=== PATIENT | male | born 1965 | race Caucasian/White ===

== ENCOUNTER 2018-04-09 15:52 | Observation (INO) ==
--- NOTE | 2018-04-09 16:23 | XR ---
EXAM DATE: 04/09/2018 4:18 PM EDT AGE/SEX: 52 years / Male INDICATIONS: . Mid chest pain and syncope. CLINICAL DATA: This is the patient's initial encounter. Patient reports that signs and symptoms have been present for 2 days and indicates a pain score of 8/10. MEDICAL/SURGICAL HISTORY: Hypertension. Cholecystectomy. COMPARISON: No prior exams available for comparison. FINDINGS: PA and lateral views of the chest demonstrate the lungs to be symmetrically aerated without evidence of mass, focal consolidation, or effusion. Mild interstitial prominence in the perihilar and lower estephania ngs bilaterally. No appreciable pneumothorax. The cardiomediastinal contours are unremarkable. Degene rative changes of the thoracic spine. Partially imaged postoperative changes of the cervical spine. CONCLUSION: 1. Nonspecific mild interstitial prominence in the perihilar and lower lungs bilaterally. 2. Normal cardiomediastinal silhouette. Electronically signed by: Danyelle Chandra MD 04/09/2018 4:22 PM EDT
[2018-04-09 16:41] LABS: Baso % (Auto) 0.3 % (0.0-2.0); Eos # (Auto) 0.2 th/mm3 (0.0-0.4); Eos % (Auto) 3.7 % (0.0-4.0); Hematocrit 38.2 % (39.0-51.0); Hemoglobin 12.7 gm/dL (13.0-17.0); Lymph # (Auto) 1.8 th/mm3 (1.0-4.8); Lymph % (Auto) 29.5 % (9.0-44.0); Mean Corpuscular HGB Conc 33.2 % (32.0-36.0); Mean Corpuscular Hemoglobin 28.2 pg (27.0-34.0); Mean Corpuscular Volume 84.8 fL (80.0-100.0); Mean Platelet Volume 10.1 fL (7.0-11.0); Mono # (Auto) 0.4 th/mm3 (0.0-0.9); Mono % (Auto) 7.4 % (0.0-8.0); Neut # (Auto) 3.5 th/mm3 (1.8-7.7); Neut % (Auto) 59.1 % (16.0-70.0); Platelet Count 116 th/mm3 (150-450); Red Cell Distribution Width 14.2 % (11.6-17.2)
--- NOTE | 2018-04-09 16:49 | ED ---
HPI General Chief complaint: Chest Pain Stated complaint: cardiac Time Seen by Provider: 04/09/18 16:00 History of Present Illness HPI narrative: 52 male history of hypertension dyslipidemia here for evaluation of chest pain and syncope. Patient has been having syncopal episodes for the last 2 years on and off been getting worse last week, last syncopal episode was this morning while he was trying to get to his car, syncopal episode witnessed by his who saw him falling on the ground, she called 911 and brought him in via [facility]. Patient says that he has been having chest pain on and off, mid chest, radiates to his left chest, nothing makes it better or worse. No diaphoresis or palpitations. No seizure-like activity. Related Data Home Medications Medication Instructions Recorded Confirmed amlodipine [Norvasc] 5 mg PO DAILY 04/09/18 04/09/18 lisinopril-hydrochlorothiazide 1 tab PO DAILY 04/09/18 04/09/18 simvastatin [Zocor] 40 mg PO QPM 04/09/18 04/09/18 tamsulosin [Flomax] 0.4 mg PO DAILY 04/09/18 04/09/18 methadone 50 mg PO DAILY 04/10/18 04/10/18 Previous Rx's Medication Instructions Recorded clonazepam [Klonopin] 0.5 mg PO Q8HR tab 04/10/18 fluoxetine 10 mg PO DAILY cap 04/10/18 quetiapine 50 mg PO HS tab 04/10/18 Allergies Allergy/AdvReac Type Severity Reaction Status Date / Time No Known Allergies Allergy Verified 04/09/18 15:57 Review of Systems ROS: all other systems reviewed are negative [facility] Social History Social History Substance History: No History of Abuse Second Hand Smoke Exposure: Yes Smoking Status: Refused to answer Tobacco Type: Cigarettes How Often Do You Have a Drink Containing Alcohol: Unable to Obtain Immunization History Tetanus Immunization: >5 Years Hx Influenza Vaccine This Season: No Exam Narrative Exam Narrative: GENERAL: Alert oriented x3 no acute distress. SKIN: Focused skin assessment warm/dry. HEAD: Atraumatic. Normocephalic. EYES: Pupils equal and round. No scleral icterus. No injection or drainage. ENT: No nasal bleeding or discharge. Mucous membranes pink and moist. NECK: Trachea midline. No JVD. CARDIOVASCULAR: Regular rate and rhythm. No murmur appreciated. RESPIRATORY: No accessory muscle use. Clear to auscultation. Breath sounds equal bilaterally. GASTROINTESTINAL: Abdomen soft, non-tender, nondistended. Hepatic and splenic margins not palpable. MUSCULOSKELETAL: No obvious deformities. No clubbing. No cyanosis. No edema. NEUROLOGICAL: Awake and alert. No obvious cranial nerve deficits. Motor grossly within normal limits. Normal speech. PSYCHIATRIC: Appropriate mood and affect; insight and judgment normal. Course Initial Documented Vital Signs Temperature 97.7 F 04/09/18 15:55 Pulse Rate 74 04/09/18 15:55 Respiratory Rate 18 04/09/18 15:55 Blood Pressure 142/67 H 04/09/18 15:55 Pulse Oximetry 98 04/09/18 15:55 Last Documented Vital Signs Temperature 98.0 F 04/11/18 08:00 Pulse Rate 70 04/11/18 08:00 Respiratory Rate 16 04/11/18 08:00 Blood Pressure 140/84 04/11/18 08:00 Pulse Oximetry 99 04/11/18 08:33 Medical Decision Making MDM Narrative Medical decision making narrative: chest pain on and off, syncopal episodes, EKG no ST elevation or depression. will admit for chest pain R/O PR. Medical Screen Exam Complete: Yes Emergency Medical Condition: Yes Lab Data Result diagrams: 04/11/18 06:35 04/11/18 06:35 Lab Results 04/09/18 04/09/18 04/09/18 Range/Units 16:15 16:15 16:15 WBC 6.0 (4.0-11.0) th/mm3 RBC 4.50 (4.50-5.90) mil/mm3 Hgb 12.7 L (13.0-17.0) gm/dL Hct 38.2 L (39.0-51.0) % MCV 84.8 (80.0-100.0) fL MCH 28.2 (27.0-34.0) pg MCHC 33.2 (32.0-36.0) % RDW 14.2 (11.6-17.2) % Plt Count 116 L (150-450) th/mm3 MPV 10.1 (7.0-11.0) fL Prelim Diff (Auto) Neut % (Auto) 59.1 (16.0-70.0) % Lymph % (Auto) 29.5 (9.0-44.0) % Loving % (Auto) 7.4 (0.0-8.0) % Eos % (Auto) 3.7 (0.0-4.0) % Baso % (Auto) 0.3 (0.0-2.0) % Neut # (Auto) 3.5 (1.8-7.7) th/mm3 Lymph # (Auto) 1.8 (1.0-4.8) th/mm3 Loving # (Auto) 0.4 (0.0-0.9) th/mm3 Eos # (Auto) 0.2 (0.0-0.4) th/mm3 Baso # (Auto) 0.0 (0.0-0.2) th/mm3 WBC Differential . Diff Scan Differential Comment Auto diff final Platelet Estimate (Normal) Platelet Morphology (Normal) Ovalocytes (None) PT (9.8-11.6) sec INR Ratio APTT (24.3-30.1) sec Sodium 146 H (136-145) meq/L Potassium 3.7 (3.5-5.1) meq/L Chloride 110 H (98-107) meq/L Carbon Dioxide 29.0 (21.0-32.0) meq/L Anion Gap 7 (5-15) meq/L BUN 12 (7-18) mg/dL Creatinine 1.01 (0.60-1.30) mg/dL Estimated GFR 77 L (>89) mL/min Random Glucose 89 (74-106) mg/dL Hemoglobin A1c (4.3-6.0) % Calcium 8.4 L (8.5-10.1) mg/dL Total Bilirubin 0.3 (0.2-1.0) mg/dL AST 18 (15-37) U/L ALT 23 (12-78) U/L Alkaline Phosphatase 50 (45-117) U/L Total Creatine Kinase (39-308) U/L Troponin I Less than 0.02 L (0.02-0.05) ng/mL B-Natriuretic Peptide 12 (0-100) pg/mL Total Protein 6.3 L (6.4-8.2) g/dL Albumin 3.5 (3.4-5.0) g/dL Triglycerides (42-150) mg/dL Cholesterol (120-200) mg/dL LDL Cholesterol, Calc (0-99) mg/dL HDL Cholesterol (40.0-60.0) mg/dL Cholesterol/HDL Ratio Ratio Vitamin B12 (193-986) pg/mL Procalcitonin (0.00-0.08) ng/mL TSH (0.358-3.740) uIU/mL Free T4 (0.76-1.46) ng/dL Urine Opiates Screen (Neg) Ur Barbiturates Screen (Neg) Ur Amphetamines Screen (Neg) U Benzodiazepines Scrn (Neg) Urine Cocaine Screen (Neg) U Cannabinoids Screen (Neg) RPR (Nonreactive) 04/09/18 04/09/18 04/09/18 Range/Units 16:15 16:15 23:35 WBC (4.0-11.0) th/mm3 RBC (4.50-5.90) mil/mm3 Hgb (13.0-17.0) gm/dL Hct (39.0-51.0) % MCV (80.0-100.0) fL MCH (27.0-34.0) pg MCHC (32.0-36.0) % RDW (11.6-17.2) % Plt Count (150-450) th/mm3 MPV (7.0-11.0) fL Prelim Diff (Auto) Neut % (Auto) (16.0-70.0) % Lymph % (Auto) (9.0-44.0) % Loving % (Auto) (0.0-8.0) % Eos % (Auto) (0.0-4.0) % Baso % (Auto) (0.0-2.0) % Neut # (Auto) (1.8-7.7) th/mm3 Lymph # (Auto) (1.0-4.8) th/mm3 Loving # (Auto) (0.0-0.9) th/mm3 Eos # (Auto) (0.0-0.4) th/mm3 Baso # (Auto) (0.0-0.2) th/mm3 WBC Differential Diff Scan Differential Comment Platelet Estimate (Normal) Platelet Morphology (Normal) Ovalocytes (None) PT 10.5 (9.8-11.6) sec INR 1.0 Ratio APTT 22.2 L (24.3-30.1) sec Sodium (136-145) meq/L Potassium (3.5-5.1) meq/L Chloride (98-107) meq/L Carbon Dioxide (21.0-32.0) meq/L Anion Gap (5-15) meq/L BUN (7-18) mg/dL Creatinine (0.60-1.30) mg/dL Estimated GFR (>89) mL/min Random Glucose (74-106) mg/dL Hemoglobin A1c (4.3-6.0) % Calcium (8.5-10.1) mg/dL Total Bilirubin (0.2-1.0) mg/dL AST (15-37) U/L ALT (12-78) U/L Alkaline Phosphatase (45-117) U/L Total Creatine Kinase 68 (39-308) U/L Troponin I Less than 0.02 L (0.02-0.05) ng/mL B-Natriuretic Peptide (0-100) pg/mL Total Protein (6.4-8.2) g/dL Albumin (3.4-5.0) g/dL Triglycerides (42-150) mg/dL Cholesterol (120-200) mg/dL LDL Cholesterol, Calc (0-99) mg/dL HDL Cholesterol (40.0-60.0) mg/dL Cholesterol/HDL Ratio Ratio Vitamin B12 (193-986) pg/mL Procalcitonin (0.00-0.08) ng/mL TSH (0.358-3.740) uIU/mL Free T4 (0.76-1.46) ng/dL Urine Opiates Screen (Neg) Ur Barbiturates Screen (Neg) Ur Amphetamines Screen (Neg) U Benzodiazepines Scrn (Neg) Urine Cocaine Screen (Neg) U Cannabinoids Screen (Neg) RPR (Nonreactive) 04/10/18 04/10/18 04/10/18 Range/Units 01:22 04:25 04:25 WBC 4.8 (4.0-11.0) th/mm3 RBC 4.37 L (4.50-5.90) mil/mm3 Hgb 12.3 L (13.0-17.0) gm/dL Hct 37.3 L (39.0-51.0) % MCV 85.4 (80.0-100.0) fL MCH 28.1 (27.0-34.0) pg MCHC 32.9 (32.0-36.0) % RDW 13.9 (11.6-17.2) % Plt Count 107 L (150-450) th/mm3 MPV 9.8 (7.0-11.0) fL Prelim Diff (Auto) Neut % (Auto) 50.3 (16.0-70.0) % Lymph % (Auto) 37.3 (9.0-44.0) % Loving % (Auto) 7.3 (0.0-8.0) % Eos % (Auto) 4.7 H (0.0-4.0) % Baso % (Auto) 0.4 (0.0-2.0) % Neut # (Auto) 2.4 (1.8-7.7) th/mm3 Lymph # (Auto) 1.8 (1.0-4.8) th/mm3 Loving # (Auto) 0.4 (0.0-0.9) th/mm3 Eos # (Auto) 0.2 (0.0-0.4) th/mm3 Baso # (Auto) 0.0 (0.0-0.2) th/mm3 WBC Differential . Diff Scan Differential Comment Auto diff final Platelet Estimate (Normal) Platelet Morphology (Normal) Ovalocytes (None) PT (9.8-11.6) sec INR Ratio APTT (24.3-30.1) sec Sodium 145 (136-145) meq/L Potassium 3.6 (3.5-5.1) meq/L Chloride 108 H (98-107) meq/L Carbon Dioxide 28.8 (21.0-32.0) meq/L Anion Gap 8 (5-15) meq/L BUN 12 (7-18) mg/dL Creatinine 0.92 (0.60-1.30) mg/dL Estimated GFR 86 L (>89) mL/min Random Glucose 114 H (74-106) mg/dL Hemoglobin A1c (4.3-6.0) % Calcium 8.4 L (8.5-10.1) mg/dL Total Bilirubin 0.3 (0.2-1.0) mg/dL AST 16 (15-37) U/L ALT 21 (12-78) U/L Alkaline Phosphatase 49 (45-117) U/L Total Creatine Kinase (39-308) U/L Troponin I Less than 0.02 L (0.02-0.05) ng/mL B-Natriuretic Peptide (0-100) pg/mL Total Protein 5.8 L (6.4-8.2) g/dL Albumin 3.2 L (3.4-5.0) g/dL Triglycerides (42-150) mg/dL Cholesterol (120-200) mg/dL LDL Cholesterol, Calc (0-99) mg/dL HDL Cholesterol (40.0-60.0) mg/dL Cholesterol/HDL Ratio Ratio Vitamin B12 (193-986) pg/mL Procalcitonin (0.00-0.08) ng/mL TSH (0.358-3.740) uIU/mL Free T4 (0.76-1.46) ng/dL Urine Opiates Screen Neg (Neg) Ur Barbiturates Screen Neg (Neg) Ur Amphetamines Screen Neg (Neg) U Benzodiazepines Scrn Neg (Neg) Urine Cocaine Screen Neg (Neg) U Cannabinoids Screen Neg (Neg) RPR (Nonreactive) 04/10/18 04/10/18 04/10/18 Range/Units 04:25 04:25 15:55 WBC (4.0-11.0) th/mm3 RBC (4.50-5.90) mil/mm3 Hgb (13.0-17.0) gm/dL Hct (39.0-51.0) % MCV (80.0-100.0) fL MCH (27.0-34.0) pg MCHC (32.0-36.0) % RDW (11.6-17.2) % Plt Count (150-450) th/mm3 MPV (7.0-11.0) fL Prelim Diff (Auto) Neut % (Auto) (16.0-70.0) % Lymph % (Auto) (9.0-44.0) % Loving % (Auto) (0.0-8.0) % Eos % (Auto) (0.0-4.0) % Baso % (Auto) (0.0-2.0) % Neut # (Auto) (1.8-7.7) th/mm3 Lymph # (Auto) (1.0-4.8) th/mm3 Loving # (Auto) (0.0-0.9) th/mm3 Eos # (Auto) (0.0-0.4) th/mm3 Baso # (Auto) (0.0-0.2) th/mm3 WBC Differential Diff Scan Differential Comment Platelet Estimate (Normal) Platelet Morphology (Normal) Ovalocytes (None) PT (9.8-11.6) sec INR Ratio APTT (24.3-30.1) sec Sodium (136-145) meq/L Potassium (3.5-5.1) meq/L Chloride (98-107) meq/L Carbon Dioxide (21.0-32.0) meq/L Anion Gap (5-15) meq/L BUN (7-18) mg/dL Creatinine (0.60-1.30) mg/dL Estimated GFR (>89) mL/min Random Glucose (74-106) mg/dL Hemoglobin A1c 5.9 (4.3-6.0) % Calcium (8.5-10.1) mg/dL Total Bilirubin (0.2-1.0) mg/dL AST (15-37) U/L ALT (12-78) U/L Alkaline Phosphatase (45-117) U/L Total Creatine Kinase (39-308) U/L Troponin I (0.02-0.05) ng/mL B-Natriuretic Peptide (0-100) pg/mL Total Protein (6.4-8.2) g/dL Albumin (3.4-5.0) g/dL Triglycerides 241 H (42-150) mg/dL Cholesterol 151 (120-200) mg/dL LDL Cholesterol, Calc 63 (0-99) mg/dL HDL Cholesterol 40.0 (40.0-60.0) mg/dL Cholesterol/HDL Ratio 3.77 Ratio Vitamin B12 296 (193-986) pg/mL Procalcitonin (0.00-0.08) ng/mL TSH 1.860 (0.358-3.740) uIU/mL Free T4 1.12 (0.76-1.46) ng/dL Urine Opiates Screen (Neg) Ur Barbiturates Screen (Neg) Ur Amphetamines Screen (Neg) U Benzodiazepines Scrn (Neg) Urine Cocaine Screen (Neg) U Cannabinoids Screen (Neg) RPR Nonreactive (Nonreactive) 04/11/18 04/11/18 04/11/18 Range/Units 06:35 06:35 06:35 WBC 3.9 L (4.0-11.0) th/mm3 RBC 4.43 L (4.50-5.90) mil/mm3 Hgb 12.5 L (13.0-17.0) gm/dL Hct 37.7 L (39.0-51.0) % MCV 85.1 (80.0-100.0) fL MCH 28.3 (27.0-34.0) pg MCHC 33.2 (32.0-36.0) % RDW 13.9 (11.6-17.2) % Plt Count 88 L (150-450) th/mm3 MPV 10.0 (7.0-11.0) fL Prelim Diff (Auto) Slide review pending Neut % (Auto) 56.7 (16.0-70.0) % Lymph % (Auto) 30.3 (9.0-44.0) % Loving % (Auto) 9.8 H (0.0-8.0) % Eos % (Auto) 3.0 (0.0-4.0) % Baso % (Auto) 0.2 (0.0-2.0) % Neut # (Auto) 2.2 (1.8-7.7) th/mm3 Lymph # (Auto) 1.2 (1.0-4.8) th/mm3 Loving # (Auto) 0.4 (0.0-0.9) th/mm3 Eos # (Auto) 0.1 (0.0-0.4) th/mm3 Baso # (Auto) 0.0 (0.0-0.2) th/mm3 WBC Differential . Diff Scan Auto diff confirmed Differential Comment . Platelet Estimate Low L (Normal) Platelet Morphology Enlarged H (Normal) Ovalocytes 1+ H (None) PT (9.8-11.6) sec INR Ratio APTT (24.3-30.1) sec Sodium 146 H (136-145) meq/L Potassium 3.5 (3.5-5.1) meq/L Chloride 110 H (98-107) meq/L Carbon Dioxide 28.9 (21.0-32.0) meq/L Anion Gap 7 (5-15) meq/L BUN 11 (7-18) mg/dL Creatinine 0.96 (0.60-1.30) mg/dL Estimated GFR 82 L (>89) mL/min Random Glucose 93 (74-106) mg/dL Hemoglobin A1c (4.3-6.0) % Calcium 8.9 (8.5-10.1) mg/dL Total Bilirubin 0.3 (0.2-1.0) mg/dL AST 21 (15-37) U/L ALT 27 (12-78) U/L Alkaline Phosphatase 52 (45-117) U/L Total Creatine Kinase (39-308) U/L Troponin I (0.02-0.05) ng/mL B-Natriuretic Peptide 54 (0-100) pg/mL Total Protein 6.7 D (6.4-8.2) g/dL Albumin 3.7 (3.4-5.0) g/dL Triglycerides (42-150) mg/dL Cholesterol (120-200) mg/dL LDL Cholesterol, Calc (0-99) mg/dL HDL Cholesterol (40.0-60.0) mg/dL Cholesterol/HDL Ratio Ratio Vitamin B12 (193-986) pg/mL Procalcitonin (0.00-0.08) ng/mL TSH (0.358-3.740) uIU/mL Free T4 (0.76-1.46) ng/dL Urine Opiates Screen (Neg) Ur Barbiturates Screen (Neg) Ur Amphetamines Screen (Neg) U Benzodiazepines Scrn (Neg) Urine Cocaine Screen (Neg) U Cannabinoids Screen (Neg) RPR (Nonreactive) 04/11/18 Range/Units 06:35 WBC (4.0-11.0) th/mm3 RBC (4.50-5.90) mil/mm3 Hgb (13.0-17.0) gm/dL Hct (39.0-51.0) % MCV (80.0-100.0) fL MCH (27.0-34.0) pg MCHC (32.0-36.0) % RDW (11.6-17.2) % Plt Count (150-450) th/mm3 MPV (7.0-11.0) fL Prelim Diff (Auto) Neut % (Auto) (16.0-70.0) % Lymph % (Auto) (9.0-44.0) % Loving % (Auto) (0.0-8.0) % Eos % (Auto) (0.0-4.0) % Baso % (Auto) (0.0-2.0) % Neut # (Auto) (1.8-7.7) th/mm3 Lymph # (Auto) (1.0-4.8) th/mm3 Loving # (Auto) (0.0-0.9) th/mm3 Eos # (Auto) (0.0-0.4) th/mm3 Baso # (Auto) (0.0-0.2) th/mm3 WBC Differential Diff Scan Differential Comment Platelet Estimate (Normal) Platelet Morphology (Normal) Ovalocytes (None) PT (9.8-11.6) sec INR Ratio APTT (24.3-30.1) sec Sodium (136-145) meq/L Potassium (3.5-5.1) meq/L Chloride (98-107) meq/L Carbon Dioxide (21.0-32.0) meq/L Anion Gap (5-15) meq/L BUN (7-18) mg/dL Creatinine (0.60-1.30) mg/dL Estimated GFR (>89) mL/min Random Glucose (74-106) mg/dL Hemoglobin A1c (4.3-6.0) % Calcium (8.5-10.1) mg/dL Total Bilirubin (0.2-1.0) mg/dL AST (15-37) U/L ALT (12-78) U/L Alkaline Phosphatase (45-117) U/L Total Creatine Kinase (39-308) U/L Troponin I (0.02-0.05) ng/mL B-Natriuretic Peptide (0-100) pg/mL Total Protein (6.4-8.2) g/dL Albumin (3.4-5.0) g/dL Triglycerides (42-150) mg/dL Cholesterol (120-200) mg/dL LDL Cholesterol, Calc (0-99) mg/dL HDL Cholesterol (40.0-60.0) mg/dL Cholesterol/HDL Ratio Ratio Vitamin B12 (193-986) pg/mL Procalcitonin 0.04 (0.00-0.08) ng/mL TSH (0.358-3.740) uIU/mL Free T4 (0.76-1.46) ng/dL Urine Opiates Screen (Neg) Ur Barbiturates Screen (Neg) Ur Amphetamines Screen (Neg) U Benzodiazepines Scrn (Neg) Urine Cocaine Screen (Neg) U Cannabinoids Screen (Neg) RPR (Nonreactive) Imaging Data Radiologist's impression: Carotid Doppler Study 04/09/18 00:00 CONCLUSION: Unremarkable exam with no evidence of stenosis. Chest X-Ray 04/09/18 16:04 CONCLUSION: 1. Nonspecific mild interstitial prominence in the perihilar and lower lungs bilaterally. 2. Normal cardiomediastinal silhouette. Chest X-Ray 04/10/18 00:00 CONCLUSION: Negative examination. Head CT 04/10/18 00:00 CONCLUSION: Negative CT Head non contrast. . Head MRI 04/10/18 00:00 CONCLUSION: 1. Negative MR Brain non contrast. Head MRA 04/10/18 00:00 CONCLUSION: 1. Absent left posterior cerebral artery. Prominent left posterior communicating artery controlling all of the flow. No evidence of aneurysm or stenosis. Myocardial Perfusion Scan Nuc Med 04/10/18 00:00 CONCLUSION: 1. No reversible perfusion defect to indicate stress-induced myocardial ischemia is identified. Discharge Plan Discharge Disposition Patient Disposition: 63 Disc To [facility] Discharge Condition Condition: Stable Discharge Order Discharge Orders: Discharge Order (Routine); Ordered 04/10/18 Ordered By: Koki Petit Discharge Details Anticipated Discharge Date: 04/10/18 Physicians Team ED Provider: Casper Trent Primary Care Provider: UNKNOWN, Attending Provider: Carmelita Bee Other Providers: Jorge Luis Bruno ; Pavan Hackett Status ED Status: Left Department Discharge Information Discharge Date/Time: 04/09/18 20:00
[2018-04-09 16:53] LABS: Activated Partial Thrombo Time 22.2 sec (24.3-30.1); Prothrombin Time 10.5 sec (9.8-11.6)
[2018-04-09 17:12] LABS: Alanine Aminotransferase 23 U/L (12-78); Albumin 3.5 g/dL (3.4-5.0); Anion Gap 7 meq/L (5-15); Aspartate Aminotransferase 18 U/L (15-37); Blood Urea Nitrogen 12 mg/dL (7-18); Calcium 8.4 mg/dL (8.5-10.1); Chloride 110 meq/L (98-107); Glomerular Filtration Rate 77 mL/min (>89); Glucose,Random 89 mg/dL (74-106); Potassium 3.7 meq/L (3.5-5.1); Sodium 146 meq/L (136-145)
[2018-04-09 17:15] LABS: Alkaline Phosphatase 50 U/L (45-117); Total Protein 6.3 g/dL (6.4-8.2)
--- NOTE | 2018-04-09 18:34 | P.HPFP ---
History of Present Illness Primary Care Physician: UNKNOWN Chief Complaint: syncope History of Present Illness: Mr. Romero is a 52-year-old white male with a past medical history of hypertension and PTSD presenting to the ED due to syncope. He states that he was riding in the car with his significant other who was driving when he started sweating, seeing stars and blacked out. His significant other stated he was out for about 2-3 minutes. She stated that he had shallow breathing and was not responding to her. Patient states that when he woke up his chest was hurting and his left arm was numb. He is still experiencing decreased sensation in his left arm. He was also unable to walk when he came to the hospital due to dizziness and numbness in his legs. He says that it "felt like he was walking through mud." He describes the chest pain as feeling like gas at first, but then progressed to a sharp pain in his left chest, nonradiating. He states that it hurt like he had broken a rib, but also feels like someone is sitting on him. The pain is worse with movement, nothing makes it feels better. He was unable to catch his breath. He has never had this pain before. He recently went to his PCP where an EKG was performed and he was told he had a blockage. He stated that he was at high risk of a heart attack and dying from this blockage. Upon reviewing the EKG from the doctor's office, it shows right bundle branch block with sinus rhythm. Of note, he has chronic numbness in his arms and legs, especially at night due to a hx of cervical fx. He has taken gabapentin in the past but has been out of this medication recently. He has had syncopal episodes "for a while now." He experiences them every day, multiple times a day. Is exacerbated by standing, walking, climbing stairs, stress. He usually has the same feelings of sweating, seeing stars, and then blacking out. 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 smokes 1 ppd alcohol- quit about 13 yrs ago Illicit drugs- occasional marijuana - Diagnosis (1) Syncope (2) Chest pain (3) Hypertension (4) PTSD (post-traumatic stress disorder) (5) Nutrition, metabolism, and development symptoms (6) DVT prophylaxis Review of Systems Constitutional: Reports night sweats, Reports weakness Eyes: Reports blurry vision, Reports requires corrective lenses Ears, Nose, Mouth, and Throat: Reports difficulty swallowing Cardiovascular: Reports chest pain, Reports fainting, Reports shortness of breath Respiratory: Reports cough Gastrointestinal: Reports abdominal pain (when constipated), Reports constipation Genitourinary: Reports difficulty urinating (enlarged prostate) Musculoskeletal: Reports joint pain (neck and shoulders) Neurologic: Reports numbness PMFSH - History History Provided By: Patient - Medical History Medical History: Medical History (Last Updated 04/09/18 @ 20:11 by Luci Mancia RN) Fusion of spine of cervical region HBP (high blood pressure) High cholesterol PTSD (post-traumatic stress disorder) Prostate disorder Schizophrenia Smoker - Surgical History Surgical History: Surgical History (Last Updated 04/09/18 @ 16:05 by Jannette Salazar) Hx of cholecystectomy - Tobacco History Second Hand Smoke Exposure: Yes Tobacco Use In Past 30 Days: Yes Smoking Status: Current every day smoker Tobacco Type: Cigarettes - Alcohol History How Often Do You Have a Drink Containing Alcohol: Monthly or less - Substance Use History Substance History: No History of Abuse - Travel History Recent Travel in the [facility] Within the Last 8 Weeks: No - Immunization History Tetanus Immunization: >5 Years Hx Influenza Vaccine This Season: No Medications and Allergies Allergies Allergy/AdvReac Type Severity Reaction Status Date / Time No Known Allergies Allergy Verified 04/09/18 15:57 Home Medications Medication Instructions Recorded Confirmed Type amlodipine [Norvasc] 5 mg PO DAILY 04/09/18 04/09/18 History lisinopril-hydrochlorothiazide 1 tab PO DAILY 04/09/18 04/09/18 History simvastatin [Zocor] 40 mg PO QPM 04/09/18 04/09/18 History tamsulosin [Flomax] 0.4 mg PO DAILY 04/09/18 04/09/18 History Exam Vital signs: Vital Signs 04/09/18 15:55 04/09/18 16:53 09/12/18 17:25 Temperature 97.7 F 97.9 F Pulse Rate 74 64 Respiratory Rate 18 18 17 Blood Pressure 142/67 H 142/83 H Pulse Oximetry 98 98 Intake & Output 04/08/18 04/09/18 04/09/18 18:59 06:59 18:59 Output Total 600 / 600 Balance -600 / -600 Weight 75.75 kg Output: Urine 600 / 600 Other: # Voids 1 Narrative: GENERAL: White male sitting up in bed, in no acute distress SKIN: Warm and dry. HEAD: Atraumatic. Normocephalic. EYES: Pupils equal and round. No scleral icterus. No injection or drainage. ENT: No nasal bleeding or discharge. Mucous membranes pink and moist. NECK: Trachea midline. No JVD. CARDIOVASCULAR: Regular rate and rhythm. No chest wall tenderness RESPIRATORY: No accessory muscle use. Clear to auscultation. Breath sounds equal bilaterally. GASTROINTESTINAL: Abdomen soft, non-tender, nondistended. Hepatic and splenic margins not palpable. MUSCULOSKELETAL: Extremities without clubbing, cyanosis, or edema. No obvious deformities. NEUROLOGICAL: Awake and alert. No obvious cranial nerve deficits. Motor grossly within normal limits. Normal speech. PSYCHIATRIC: Appropriate mood and affect; insight and judgment normal. - Routine HEENT Exam Eye: Absent: normal accommodation Results - Labs Result diagrams: 04/09/18 16:15 04/09/18 16:15 Abnormal lab results 04/09/18 04/09/18 04/09/18 Range/Units 16:15 16:15 16:15 Hgb 12.7 L (13.0-17.0) gm/dL Hct 38.2 L (39.0-51.0) % Plt Count 116 L (150-450) th/mm3 APTT 22.2 L (24.3-30.1) sec Sodium 146 H (136-145) meq/L Chloride 110 H (98-107) meq/L Estimated GFR 77 L (>89) mL/min Calcium 8.4 L (8.5-10.1) mg/dL Troponin I Less than 0.02 L (0.02-0.05) ng/mL Total Protein 6.3 L (6.4-8.2) g/dL Short CBC 04/09/18 Range/Units 16:15 WBC 6.0 (4.0-11.0) th/mm3 Hgb 12.7 L (13.0-17.0) gm/dL Hct 38.2 L (39.0-51.0) % Plt Count 116 L (150-450) th/mm3 BMP 04/09/18 16:15 Sodium 146 H Potassium 3.7 Chloride 110 H Carbon Dioxide 29.0 BUN 12 Creatinine 1.01 Calcium 8.4 L Cardiac Enzymes 04/09/18 04/09/18 Range/Units 16:15 16:15 Total Creatine Kinase 68 (39-308) U/L Troponin I Less than 0.02 L (0.02-0.05) ng/mL Liver Function 04/09/18 Range/Units 16:15 Total Bilirubin 0.3 (0.2-1.0) mg/dL AST 18 (15-37) U/L ALT 23 (12-78) U/L Alkaline Phosphatase 50 (45-117) U/L Albumin 3.5 (3.4-5.0) g/dL - Imaging Impressions Chest X-Ray 04/09/18 16:04 CONCLUSION: 1. Nonspecific mild interstitial prominence in the perihilar and lower lungs bilaterally. 2. Normal cardiomediastinal silhouette. Caprini VTE Risk Assessment Caprini VTE Risk Assessment: Moderate/High Risk (score >= 2) Caprini Risk Assessment Model: Point Value = 1 Point Value = 2 Point Value = 3 Point Value = 5 Age 41-60 Minor surgery BMI > 25 kg/m2 Swollen legs Varicose veins or History of unexplained or recurrent spontaneous Oral contraceptives or hormone replacement Sepsis (< 1 month) Serious lung disease, including pneumonia (< 1 month) Abnormal pulmonary function Acute myocardial infarction Congestive heart failure (< 1 month) History of inflammatory bowel disease Medical patient at bed rest Age 61-74 Arthroscopic surgery Major open surgery (> 45 min) Laparoscopic surgery (> 45 min) Malignancy Confined to bed (> 72 hours) Immobilizing plaster cast Central venous access Age >= 75 History of VTE Family history of VTE Factor V Leiden Prothrombin [id number] Lupus anticoagulant Anticardiolipin antibodies Elevated serum homocysteine Heparin-induced thrombocytopenia Other congenital or acquired thrombophilia Stroke (< 1 month) Elective arthroplasty Hip, pelvis, or leg fracture Acute spinal cord injury (< 1 month) Prophylaxis Regimen: Total Risk Factor Score Risk Level Prophylaxis Regimen 0-1 Low Early ambulation 2 Moderate Order ONE of the following: *Sequential Compression Device (SCD) *Heparin 5000 units SQ BID 3-4 Higher Order ONE of the following medications: *Heparin 5000 units SQ TID *Enoxaparin/Lovenox 40 mg SQ daily (WT < 150 kg, CrCl > 30 mL/min) *Enoxaparin/Lovenox 30 mg SQ daily (WT < 150 kg, CrCl > 10-29 mL/min) *Enoxaparin/Lovenox 30 mg SQ BID (WT < 150 kg, CrCl > 30 mL/min) AND/OR *Sequential Compression Device (SCD) 5 or more Highest Order ONE of the following medications: *Heparin 5000 units SQ TID (Preferred with Epidurals) *Enoxaparin/Lovenox 40 mg SQ daily (WT < 150 kg, CrCl > 30 mL/min) *Enoxaparin/Lovenox 30 mg SQ daily (WT < 150 kg, CrCl > 10-29 mL/min) *Enoxaparin/Lovenox 30 mg SQ BID (WT < 150 kg, CrCl > 30 mL/min) AND *Sequential Compression Device (SCD) Assessment and Plan - Assessment (1) Syncope Code(s): R55 - Syncope and collapse Status: Acute Plan: Patient with multiple episodes of syncope daily. Patient's description of symptoms seems to be vasovagal in nature. However differential diagnosis includes vasovagal versus orthostatic versus cardiogenic -Monitor telemetry -Orthostatic BPs -Carotid US -Echocardiogram -Consider neurology or cardiology consult to determine etiology if initial tests are negative (2) Chest pain Code(s): R07.9 - Chest pain, unspecified Status: Acute Plan: Patient with feeling of left-sided chest pressure. MS versus angina versus costochondritis versus GERD EKG on admission shows sinus rhythm with HR of 72 with right bundle branch block , correlates with EKG from PCP appointment Troponin negative 1 BNP 12 CXR on admission specific mild interstitial prominence in the perihilar and lower lungs bilaterally -Trend troponin 2 every 6 hours with corresponding EKGs -UDS pending (3) Hypertension Code(s): I10 - Essential (primary) hypertension Status: Chronic Plan: Patient's medications were just adjusted by PCP recently -Continue amlodipine 5 mg p.o. daily and lisinopril 20 mg p.o. daily (4) PTSD (post-traumatic stress disorder) Code(s): F43.10 - Post-traumatic stress disorder, unspecified Status: Chronic Plan: Patient was in the and subsequently developed PTSD. States that he previously was on Klonopin. Checked [facility] and was unable to find any records in [place]. Ativan 0.5 mg every 6 hours as needed and for anxiety Temazepam 50 mg p.o. at bedtime for insomnia (5) Nutrition, metabolism, and development symptoms Code(s): R63.8 - Other symptoms and signs concerning food and fluid intake Status: Acute Plan: Fluids: tolerating PO Electrolytes: monitor and replete as needed Nutrition: heart-healthy diet (6) DVT prophylaxis Status: Acute Plan: DVT Prophylaxis: Early ambulation. Heparin 5000U subQ q12hr
[2018-04-09] MEDS ORDERED: Bisacodyl 10 MG Supp RECTAL PRN (19:03)
[2018-04-09] MEDS ORDERED: Acetaminophen 325 MG Tablet PO PRN (19:03)
[2018-04-09] MEDS: Heparin - SQ 10,000 UNITS/ML Vial SQ SCH (20:13)
[2018-04-09] MEDS: Senna/Docusate Sodium 8.6/50 MG Tablet PO SCH (20:13)
[2018-04-09] MEDS ORDERED: Temazepam 15 MG Capsule PO PRN (21:17)
--- NOTE | 2018-04-09 22:49 | US ---
EXAM DATE: 04/09/2018 10:44 PM EDT AGE/SEX: 52 years / Male INDICATIONS: Syncope with left leg numbness. CLINICAL DATA: This is the patient's initial encounter. Patient reports that signs and symptoms have been present for 1 day and indicates a pain score of 0/10. MEDICAL/SURGICAL HISTORY: Hypertension. Renal calculi. Glaucoma. PTSD. Cervical fracture. C holecystectomy. Tonsillectomy. Neck surgery. Bone spur removal from the left hand. COMPARISON: No prior exams available for comparison. VELOCITY PARAMETERS: ICA/CCA Ratio: Right 1.19 , Left 0.99 ICA: Right 116 cm/sec, Left 107 cm/sec CCA: Right 98 cm/sec, Left 108 cm/sec ECA: Right 124 cm/sec, Left 113 cm/sec Vertebral: Right 60 cm/sec antegrade, Left 63 cm/sec antegrade FINDINGS: Right Carotid: No significant plaque is visualized.The waveforms are within normal limits. Left Carotid: No significant plaque is visualized. The waveforms are within normal limits. Other: None. CONCLUSION: Unremarkable exam with no evidence of stenosis. Electronically signed by: Malcolm Hidalgo MD 04/09/2018 10:48 PM EDT
[2018-04-10 01:44] LABS: Amphetamine Screen,Urine Neg (Neg); Barbiturate Screen,Urine Neg (Neg); Cannabinoid Screen,Urine Neg (Neg); Cocaine Screen,Urine Neg (Neg); Opiate Screen,Urine Neg (Neg)
[2018-04-10 04:44] LABS: Baso % (Auto) 0.4 % (0.0-2.0); Eos # (Auto) 0.2 th/mm3 (0.0-0.4); Eos % (Auto) 4.7 % (0.0-4.0); Hematocrit 37.3 % (39.0-51.0); Hemoglobin 12.3 gm/dL (13.0-17.0); Lymph # (Auto) 1.8 th/mm3 (1.0-4.8); Lymph % (Auto) 37.3 % (9.0-44.0); Mean Corpuscular HGB Conc 32.9 % (32.0-36.0); Mean Corpuscular Hemoglobin 28.1 pg (27.0-34.0); Mean Corpuscular Volume 85.4 fL (80.0-100.0); Mean Platelet Volume 9.8 fL (7.0-11.0); Mono # (Auto) 0.4 th/mm3 (0.0-0.9); Mono % (Auto) 7.3 % (0.0-8.0); Neut # (Auto) 2.4 th/mm3 (1.8-7.7); Neut % (Auto) 50.3 % (16.0-70.0); Platelet Count 107 th/mm3 (150-450); Red Blood Count 4.37 mil/mm3 (4.50-5.90); Red Cell Distribution Width 13.9 % (11.6-17.2); White Blood Count 4.8 th/mm3 (4.0-11.0)
[2018-04-10 05:08] LABS: Albumin 3.2 g/dL (3.4-5.0); Anion Gap 8 meq/L (5-15); Aspartate Aminotransferase 16 U/L (15-37); Blood Urea Nitrogen 12 mg/dL (7-18); Calcium 8.4 mg/dL (8.5-10.1); Carbon Dioxide 28.8 meq/L (21.0-32.0); Chloride 108 meq/L (98-107); Glomerular Filtration Rate 86 mL/min (>89); Glucose,Random 114 mg/dL (74-106); Potassium 3.6 meq/L (3.5-5.1); Sodium 145 meq/L (136-145)
[2018-04-10 05:09] LABS: Alanine Aminotransferase 21 U/L (12-78)
[2018-04-10 05:13] LABS: Alkaline Phosphatase 49 U/L (45-117); Total Protein 5.8 g/dL (6.4-8.2)
--- NOTE | 2018-04-10 08:37 | P.CONCA ---
History of Present Illness Primary Care Provider: UNKNOWN Chief Complaint: syncope History of Present Illness: 52-year-old male with past medical history of HTN, HLD, PTSD who presented after recurrent syncopal episodes. Patient states that he has been having episodes of syncope for the past year. He states that episodes have increased in frequency are nearly daily. He states usually episodes are induced by strenuous activity such as lifting a couch or a ladder. He was riding as a passenger with his in the car yesterday and had another syncopal episode at rest. His described that he became sweaty and just slumped over. She denies noticing any tonic-clonic activity. He loses consciousness for about 3- 5 minutes. He reports prior to the episodes he feels lightheaded/dizzy and narrowing of his vision. He denies any chest pain, palpitations prior to the episodes. He denies any tongue biting or bowel/bladder incontinence after the episodes. 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 He does report that at times he wakes up at night gasping for air with numbness in his hands, denies ever having a sleep study performed. The patient states that his primary physician told him to come to the hospital if he had any further episodes and he would need a stress test based on his EKG. His EKG shows NSR with right bundle branch block, no ischemic changes noted. Troponins 0.023. The patient is quite upset about not getting to have a stress test and his attributes him being upset to his PTSD. Review of Systems All other systems reviewed negative except as stated in HPI PMFSH - History History Provided By: Patient, Family Member, Medical Record - Medical History Medical History: Medical History (Last Updated 04/09/18 @ 20:11 by Luci Mancia RN) Fusion of spine of cervical region HBP (high blood pressure) High cholesterol PTSD (post-traumatic stress disorder) Prostate disorder Schizophrenia Smoker - Surgical History Surgical History: Surgical History (Last Updated 04/09/18 @ 16:05 by Jannette Salazar) Hx of cholecystectomy - Tobacco History Second Hand Smoke Exposure: Yes Tobacco Use In Past 30 Days: Yes Smoking Status: Current every day smoker Tobacco Type: Cigarettes - Alcohol History How Often Do You Have a Drink Containing Alcohol: Monthly or less - Substance Use History Substance History: No History of Abuse - Travel History Recent Travel in the [place] Within the Last 8 Weeks: No Recent Travel Out of the Country Within the Last 8 Weeks: No - Immunization History Tetanus Immunization: >5 Years Hx Influenza Vaccine This Season: No Medications and Allergies Active Medications: Active Medications Acetaminophen (Tylenol) 650 mg PO Q4H PRN PRN Reason: Temp > 100.4 Al Hydroxide/Mg Hydroxide (Milk Of Magnesia Liq) 30 ml PO Q12H PRN PRN Reason: Mild Constipation Amlodipine Besylate (Norvasc) 5 mg PO DAILY [facility] Bisacodyl (Dulcolax Supp) 10 mg RECTAL DAILY PRN PRN Reason: SEVERE CONSITIPATION Heparin Sodium (Porcine) (Heparin Inj) 5,000 units SQ Q12H [facility] Last Admin: 04/09/18 20:13 Dose: 5,000 units Lactulose (Lactulose Liq) 30 ml PO DAILY PRN PRN Reason: SEVERE CONSITIPATION Lisinopril (Prinivil) 20 mg PO DAILY [facility] Lorazepam (Ativan) 0.5 mg PO Q6H PRN PRN Reason: ANXIETY Nicotine (Habitrol 14 Mg Patch.24 Hr) 1 patch T-DERMAL DAILY [facility] Ondansetron HCl (Zofran Inj) 4 mg IV.PUSH Q6H PRN PRN Reason: NAUSEA OR VOMITING Patch Removal (Remove Old Patch) 1 each T-DERMAL DAILY [facility] Senna/Docusate Sodium (Michelle-Colace) 1 tab PO BID [facility] Last Admin: 04/09/18 20:13 Dose: 1 tab Sennosides (Senokot) 17.2 mg PO Q12H PRN PRN Reason: Moderate Constipation Temazepam (Restoril) 15 mg PO HS PRN PRN Reason: INSOMNIA Allergies Allergy/AdvReac Type Severity Reaction Status Date / Time No Known Allergies Allergy Verified 04/09/18 15:57 Home Medications Medication Instructions Recorded Confirmed Type amlodipine [Norvasc] 5 mg PO DAILY 04/09/18 04/09/18 History lisinopril-hydrochlorothiazide 1 tab PO DAILY 04/09/18 04/09/18 History simvastatin [Zocor] 40 mg PO QPM 04/09/18 04/09/18 History tamsulosin [Flomax] 0.4 mg PO DAILY 04/09/18 04/09/18 History methadone 50 mg PO DAILY 04/10/18 04/10/18 History Exam Vital signs: Vital Signs 04/09/18 15:55 04/09/18 16:53 04/09/18 17:25 Temperature 97.7 F 97.9 F Pulse Rate 74 64 Respiratory Rate 18 18 17 Blood Pressure 142/67 H 142/83 H Pulse Oximetry 98 98 04/09/18 19:51 04/09/18 20:00 04/09/18 23:26 Temperature 98.8 F Pulse Rate 63 80 Respiratory Rate 16 17 Blood Pressure 150/82 H 145/84 H Pulse Oximetry 97 95 04/10/18 04:00 04/10/18 06:00 04/10/18 07:34 Temperature 98.7 F 97.4 F L Pulse Rate 74 56 L 68 Respiratory Rate 16 16 Blood Pressure 135/80 150/80 H Pulse Oximetry 93 L 96 Intake & Output 04/09/18 04/10/18 04/10/18 18:59 06:59 18:59 Intake Total 480 / 480 Output Total 600 / 600 Balance -600 / -600 480 / 480 Weight 167 lb 169 lb 9 oz Intake: Oral 480 / 480 Output: Urine 600 / 600 Other: # Voids 1 2 Date of Last Bowel Movement 04/06/18 # Bowel Movements 1 Weight On Admission 167 lb 0.002 oz Narrative: GENERAL: Well-developed well-nourished. In no acute distress. NECK: No carotid bruits. No JVD. CARDIOVASCULAR: Regular rate and rhythm. No murmur appreciated. RESPIRATORY: No accessory muscle use. Clear to auscultation. Breath sounds equal bilaterally. MUSCULOSKELETAL: No clubbing or cyanosis. No edema. NEUROLOGICAL: Awake and alert. Normal speech. Results 04/10/18 04:25 04/10/18 04:25 Cardiac Enzymes 04/09/18 04/09/18 04/09/18 Range/Units 16:15 16:15 23:35 AST 18 (15-37) U/L Troponin I Less than 0.02 L Less than 0.02 L (0.02-0.05) ng/mL B-Natriuretic Peptide 12 (0-100) pg/mL 04/10/18 Range/Units 04:25 AST 16 (15-37) U/L Troponin I Less than 0.02 L (0.02-0.05) ng/mL B-Natriuretic Peptide (0-100) pg/mL Coagulation 04/09/18 04/09/18 Range/Units 16:15 16:15 PT 10.5 (9.8-11.6) sec APTT 22.2 L (24.3-30.1) sec B-Natriuretic Peptide 12 (0-100) pg/mL CBC 04/09/18 04/10/18 Range/Units 16:15 04:25 WBC 6.0 4.8 (4.0-11.0) th/mm3 RBC 4.50 4.37 L (4.50-5.90) mil/mm3 Hgb 12.7 L 12.3 L (13.0-17.0) gm/dL Hct 38.2 L 37.3 L (39.0-51.0) % Plt Count 116 L 107 L (150-450) th/mm3 Neut # (Auto) 3.5 2.4 (1.8-7.7) th/mm3 Lymph # (Auto) 1.8 1.8 (1.0-4.8) th/mm3 [place] # (Auto) 0.4 0.4 (0.0-0.9) th/mm3 Eos # (Auto) 0.2 0.2 (0.0-0.4) th/mm3 Baso # (Auto) 0.0 0.0 (0.0-0.2) th/mm3 Comprehensive Metabolic Panel 04/09/18 04/10/18 Range/Units 16:15 04:25 Sodium 146 H 145 (136-145) meq/L Potassium 3.7 3.6 (3.5-5.1) meq/L Chloride 110 H 108 H (98-107) meq/L Carbon Dioxide 29.0 28.8 (21.0-32.0) meq/L BUN 12 12 (7-18) mg/dL Creatinine 1.01 0.92 (0.60-1.30) mg/dL Calcium 8.4 L 8.4 L (8.5-10.1) mg/dL AST 18 16 (15-37) U/L ALT 23 21 (12-78) U/L Alkaline Phosphatase 50 49 (45-117) U/L Total Protein 6.3 L 5.8 L (6.4-8.2) g/dL Albumin 3.5 3.2 L (3.4-5.0) g/dL Intake and Output 04/09/18 04/10/18 04/10/18 22:59 06:59 14:59 Intake Total 480 / 480 Output Total 600 / 600 Balance -600 / -600 480 / 480 Intake: Oral 480 / 480 Output: Urine 600 / 600 Other: # Voids 1 2 Date of Last Bowel Movement 04/06/18 # Bowel Movements 1 Weight 169 lb 9 oz Weight On Admission 167 lb 0.002 oz Assessment and Plan - Plan 52-year-old male with past medical history of HTN, HLD, PTSD who presented after recurrent syncopal episodes. Recurrent syncope: Some episodes sound to have a vasovagal component, but now with episodes at rest. Echocardiogram is been ordered to rule out any structural heart abnormality. Telemetry with NSR no arrhythmias noted overnight , continue telemetry monitoring for at least 24 hours while admitted. If nothing seen on inpatient telemetry, recommend 30 day event monitor as outpatient for further evaluation. Due to reported chest pain symptoms with PCP , will check ETT SPECT to rule out ischemic etiology. Discussed Condition With: Patient with at bedside, primary medical team, Dr. Bruno
[2018-04-10] MEDS: Methadone 10 MG Tablet PO SCH (10:03)
[2018-04-10] MEDS: amLODIPine 5 MG Tablet PO SCH (10:04)
[2018-04-10] MEDS: Heparin - SQ 10,000 UNITS/ML Vial SQ SCH ×2 (10:04→22:26)
[2018-04-10] MEDS: Senna/Docusate Sodium 8.6/50 MG Tablet PO SCH ×2 (10:12→22:26)
[2018-04-10] MEDS: Lisinopril 20 MG Tablet PO SCH (10:12)
--- NOTE | 2018-04-10 10:37 | P.PNFP ---
Subjective Interval history: 52-year-old male seen in the emergency department twice this morning with the medicine team after being admitted overnight with a history of 1-2 years of intermittent near syncope as well as chest pain, nonradiating, associated with some nausea and sweats at times. He never gets either the near syncope episodes or the chest pain when he is at rest. His syncope episodes consist of getting stars before his vision and then losing his vision, he never completely false of the floor and holds onto something until the symptoms passed. He at times wakes up in the night with chest pain and feeling as though there is heaviness in his chest and tingling and numbness in his hands. He is on a statin as well as lisinopril and amlodipine. His medications come from a local [facility]. Please see history and physical examination for this admission for additional historical details, including past, family, social history and review of systems at the time of admission. This morning, patient states he has not had any syncopal or near syncopal episodes or chest pain since he has been in the hospital because he has been at bedrest. Has been told that he has a heart blockage that could lead to his , and he is very concerned that this be worked up. He states that his reports that he wheezes a lot in his sleep. He is a smoker. When we see him, he has been seen by the cardiology PA and the gas engine mechanic. Results - Labs Result diagrams: 04/10/18 04:25 04/10/18 04:25 Abnormal lab results 04/09/18 04/09/18 04/09/18 Range/Units 16:15 16:15 16:15 RBC (4.50-5.90) mil/mm3 Hgb 12.7 L (13.0-17.0) gm/dL Hct 38.2 L (39.0-51.0) % Plt Count 116 L (150-450) th/mm3 Eos % (Auto) (0.0-4.0) % APTT 22.2 L (24.3-30.1) sec Sodium 146 H (136-145) meq/L Chloride 110 H (98-107) meq/L Estimated GFR 77 L (>89) mL/min Random Glucose (74-106) mg/dL Calcium 8.4 L (8.5-10.1) mg/dL Troponin I Less than 0.02 L (0.02-0.05) ng/mL Total Protein 6.3 L (6.4-8.2) g/dL Albumin (3.4-5.0) g/dL 04/09/18 04/10/18 04/10/18 Range/Units 23:35 04:25 04:25 RBC 4.37 L (4.50-5.90) mil/mm3 Hgb 12.3 L (13.0-17.0) gm/dL Hct 37.3 L (39.0-51.0) % Plt Count 107 L (150-450) th/mm3 Eos % (Auto) 4.7 H (0.0-4.0) % APTT (24.3-30.1) sec Sodium (136-145) meq/L Chloride 108 H (98-107) meq/L Estimated GFR 86 L (>89) mL/min Random Glucose 114 H (74-106) mg/dL Calcium 8.4 L (8.5-10.1) mg/dL Troponin I Less than 0.02 L Less than 0.02 L (0.02-0.05) ng/mL Total Protein 5.8 L (6.4-8.2) g/dL Albumin 3.2 L (3.4-5.0) g/dL Short CBC 04/09/18 04/10/18 Range/Units 16:15 04:25 WBC 6.0 4.8 (4.0-11.0) th/mm3 Hgb 12.7 L 12.3 L (13.0-17.0) gm/dL Hct 38.2 L 37.3 L (39.0-51.0) % Plt Count 116 L 107 L (150-450) th/mm3 BMP 04/09/18 04/10/18 16:15 04:25 Sodium 146 H 145 Potassium 3.7 3.6 Chloride 110 H 108 H Carbon Dioxide 29.0 28.8 BUN 12 12 Creatinine 1.01 0.92 Calcium 8.4 L 8.4 L Cardiac Enzymes 04/09/18 04/09/18 04/09/18 Range/Units 16:15 16:15 23:35 Total Creatine Kinase 68 (39-308) U/L Troponin I Less than 0.02 L Less than 0.02 L (0.02-0.05) ng/mL 04/10/18 Range/Units 04:25 Total Creatine Kinase (39-308) U/L Troponin I Less than 0.02 L (0.02-0.05) ng/mL Liver Function 04/09/18 04/10/18 Range/Units 16:15 04:25 Total Bilirubin 0.3 0.3 (0.2-1.0) mg/dL AST 18 16 (15-37) U/L ALT 23 21 (12-78) U/L Alkaline Phosphatase 50 49 (45-117) U/L Albumin 3.5 3.2 L (3.4-5.0) g/dL - Imaging Impressions Carotid Doppler Study 04/09/18 00:00 CONCLUSION: Unremarkable exam with no evidence of stenosis. Chest X-Ray 04/09/18 16:04 CONCLUSION: 1. Nonspecific mild interstitial prominence in the perihilar and lower lungs bilaterally. 2. Normal cardiomediastinal silhouette. Physical Exam Vital signs: Vital Signs 04/09/18 15:55 04/09/18 16:53 04/09/18 17:25 Temperature 97.7 F 97.9 F Pulse Rate 74 64 Respiratory Rate 18 18 17 Blood Pressure 142/67 H 142/83 H Pulse Oximetry 98 98 04/09/18 19:51 04/09/18 20:00 04/09/18 23:26 Temperature 98.8 F Pulse Rate 63 80 Respiratory Rate 16 17 Blood Pressure 150/82 H 145/84 H Pulse Oximetry 97 95 04/10/18 04:00 04/10/18 06:00 04/10/18 07:34 Temperature 98.7 F 97.4 F L Pulse Rate 74 56 L 68 Respiratory Rate 16 16 Blood Pressure 135/80 150/80 H Pulse Oximetry 93 L 96 Intake & Output 04/09/18 04/10/18 04/10/18 18:59 06:59 18:59 Intake Total 480 / 480 Output Total 600 / 600 Balance -600 / -600 480 / 480 Weight 75.75 kg 76.912 kg Intake: Oral 480 / 480 Output: Urine 600 / 600 Other: # Voids 1 2 Date of Last Bowel Movement 04/06/18 # Bowel Movements 1 Weight On Admission 75.75 kg - Constitutional no acute distress, average body habitus, agitated (At times with anger symptoms. ) - Routine HEENT Exam Head: Present: normocephalic Eye: Present: EOMI, PERRL, conjunctivae pink. Absent: conjunctival icterus, scleral injection ENT: Present: mucous membranes moist - Routine Neck Exam Absent: supple (Has had cervical spine fractures and surgery for same, range of motion of his neck is limited in extension in particular.), full ROM, lymphadenopathy - Routine Respiratory Exam Present: rhonchi, crackles (Bibasilar right greater than left). Absent: accessory muscle use - Routine Cardiovascular Exam Present: RRR. Absent: murmur - Routine Abdominal Exam Present: soft, normoactive bowel sounds - Routine Extremities Exam Absent: cyanosis, clubbing, edema, calf tenderness, palpable cord - Routine Skin Exam Present: intact, scars (Right forearm dorsally). Absent: rash - Routine Neurological Exam Present: alert, oriented X3, moving all extremities, normal speech - Detailed Neurological Exam: Coma Scale Eye Opening: Spontaneous Verbal Response: Oriented Motor Response: Obey commands [place] Coma Scale Total: 15 - Routine Psychiatric Exam Present: agitated (At times seeming angry), paranoid (Seems to feel cheated). Absent: normal thought process, good insight Assessment and Plan - Assessment (1) Syncope Code(s): R55 - Syncope and collapse Status: Chronic Plan: Patient with multiple episodes of syncope daily. Patient's description of symptoms seems to be vasovagal in nature. However differential diagnosis includes vasovagal versus orthostatic versus cardiogenic -Monitor telemetry -Orthostatic BPs -Carotid US -Echocardiogram -Consider neurology or cardiology consult to determine etiology if initial tests are negative (2) Chest pain Code(s): R07.9 - Chest pain, unspecified Status: Acute Plan: Patient with feeling of left-sided chest pressure. PR versus angina versus costochondritis versus GERD EKG on admission shows sinus rhythm with HR of 72 with right bundle branch block , correlates with EKG from PCP appointment Troponin negative 1 BNP 12 CXR on admission specific mild interstitial prominence in the perihilar and lower lungs bilaterally -Trend troponin 2 every 6 hours with corresponding EKGs -UDS pending (3) Hypertension Code(s): I10 - Essential (primary) hypertension Status: Chronic Plan: Patient's medications were just adjusted by PCP recently -Continue amlodipine 5 mg p.o. daily and lisinopril 20 mg p.o. daily (4) PTSD (post-traumatic stress disorder) Code(s): F43.10 - Post-traumatic stress disorder, unspecified Status: Chronic Plan: Patient was in the and subsequently developed PTSD. States that he previously was on Klonopin. Checked [facility] and was unable to find any records in [place]. Ativan 0.5 mg every 6 hours as needed and for anxiety Temazepam 50 mg p.o. at bedtime for insomnia (5) Nutrition, metabolism, and development symptoms Code(s): R63.8 - Other symptoms and signs concerning food and fluid intake Status: Acute Plan: Fluids: tolerating PO Electrolytes: monitor and replete as needed Nutrition: heart-healthy diet (6) DVT prophylaxis Status: Acute Plan: DVT Prophylaxis: Early ambulation. Heparin 5000U subQ q12hr - Assessment and Plan Discussed Condition With: Dr. Bruno, Dr. Hackett, and the entire medicine team. - Attending Attestation Patient was seen, examined and discussed with the entire medicine team. I agree with the plan; please see orders. (1) Syncope Qualifiers: Syncope type: unspecified Qualified Code(s): R55 - Syncope and collapse (2) Chest pain Qualifiers: Chest pain type: other chest pain Qualified Code(s): R07.89 - Other chest pain; R07.8 - Other chest pain (3) Hypertension Qualifiers: Hypertension type: essential hypertension Qualified Code(s): I10 - Essential (primary) hypertension
[2018-04-10] MEDS ORDERED: Regadenoson Inj 0.4 MG/5 ML Syringe IV.PUSH ONE (11:42)
[2018-04-10] MEDS ORDERED: clonazePAM 1 MG Tablet PO ONE (12:15)
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
--- NOTE | 2018-04-10 13:05 | NM ---
EXAM DATE: 04/10/2018 12:54 PM EDT AGE/SEX: 52 years / Male INDICATIONS:Abnormal EKG. Angina Syncope. CLINICAL DATA: This is the patient's initial encounter. Patient reports that signs and symptoms have been present for > 1 year and indicates a pain score of 0/10. MEDICAL/SURGICAL HISTORY: Hypertension. Hypercholesterolemia. Prostate disorder, post-traumati c stress disorder, schitzophrenia. Cholecystectomy. C-spine fusion. COMPARISON: No prior exams available for comparison. DOSE: 8.4 mCi Tc 99m Myoview at rest 25.9 mCi [id number] at stress 0.4 mg Lexiscan STRESS SYMPTOMS: Dyspnea, dizziness and headache. EJECTION FRACTION: 58 % TECHNIQUE: The patient underwent pharmacologic stress with infusion of prescribed dose. Continuous ECG tracing was monitored during stress. Gated SPECT imaging was performed after stress and conventi onal SPECT imaging was performed at rest. The examination was performed on a SPECT/CT scanner, both attenuation and non-corrected datasets were reviewed. FINDINGS: Distribution: The maximum perfused segment at stress is in the inferolateral wall. Perfusion Study: The pattern of perfusion at stress is within normal limits. Gated Study: There are intact wall motion and wall thickening without hypokinetic or dyskinetic segm ents. The ejection fraction is calculated at 58%. RISK CATEGORY: Low (<1% Annual Motality Rate) CONCLUSION: 1. No reversible perfusion defect to indicate stress-induced myocardial ischemia is identified. Electronically signed by: Javier Bess MD 04/10/2018 1:04 PM EDT
[2018-04-10] MEDS: clonazePAM 0.5 MG Tablet PO SCH ×2 (13:59→22:26)
[2018-04-10] MEDS: FLUoxetine 10 MG Capsule PO SCH (14:31)
--- NOTE | 2018-04-10 14:34 | ECHRPT ---
Indication: Chest Pain CONCLUSIONS Technically difficult study with limited echocardiographic window visualization. Normal left ventricular size. Wall thickness is measured at the upper limits of normal. The left ventricular systolic function is low normal with an estimated ejection fraction in the rang e of 50- 55%. There was limited left ventricular wall motion assessment due to poor endocardial visualization. BP: / HR: Rhythm: MEASUREMENTS (Male / Female) Normal Values Technical Quality:Very technically difficult study 2D ECHO LV Diastolic Diameter PLAX 3.9 cm 4.2 - 5.9 / 3.9 - 5.3 cm LV Systolic Diameter PLAX 3.0 cm IVS Diastolic Thickness 1.1 cm 0.6 - 1.0 / 0.6 - 0.9 cm LVPW Diastolic Thickness 1.1 cm 0.6 - 1.0 / 0.6 - 0.9 cm LV Relative Wall Thickness 0.6 LVOT Diameter 2.3 cm Aortic Root Diameter 2.5 cm LA Systolic Diameter LX 2.5 cm 3.0 - 4.0 / 2.7 - 3.8 cm DOPPLER AV Peak Velocity 103.0 cm/s AV Peak Gradient 4.2 mmHg LVOT Peak Velocity 77.5 cm/s LVOT Peak Gradient 2.4 mmHg AV Area Cont Eq pk 3.1 cm Mitral E Point Velocity 80.9 cm/s Mitral A Point Velocity 80.0 cm/s Mitral E to A Ratio 1.0 LV E' Lateral Velocity 14.1 cm/s Mitral E to LV E' Lateral Ratio 5.7 LV E' Septal Velocity 10.4 cm/s Mitral E to LV E' Septal Ratio 7.8 TR Peak Velocity 113.0 cm/s TR Peak Gradient 5.1 mmHg Right Atrial Pressure 5.0 mmHg Pulmonary Artery Systolic Pressu 10.1 mmHg Right Ventricular Systolic Press 10.1 mmHg FINDINGS LEFT VENTRICLE Normal left ventricular size. Wall thickness is measured at the upper limits of normal. The left ventricular systolic function is low normal with an estimated ejection fraction in the rang e of 50- 55%. There was limited left ventricular wall motion assessment due to poor endocardial visualization. RIGHT VENTRICLE Normal right ventricular size and systolic function. LEFT ATRIUM The left atrial size is normal. RIGHT ATRIUM The right atrial size is normal. ATRIAL SEPTUM Normal atrial septal thickness without atrial level shunting by limited color doppler interrogation. AORTA The aortic root and proximal ascending aorta are normal in size on limited imaging. MITRAL VALVE Structurally normal mitral valve. No mitral valve stenosis or regurgitation. AORTIC VALVE No aortic valve stenosis or regurgitation. TRICUSPID VALVE No tricuspid valve stenosis or regurgitation. PULMONARY VALVE No pulmonary valve regurgitation or stenosis. VESSELS The inferior vena cava is normal in size. PERICARDIUM No pericardial effusion. Jorge Luis Bruno (Electronically Signed) Final Date:10 April 2018 14:32
--- NOTE | 2018-04-10 15:14 | CT ---
EXAM DATE: 04/10/2018 3:01 PM EDT AGE/SEX: 52 years / Male INDICATIONS: Dizziness CLINICAL DATA: This is the patient's initial encounter. Patient reports that signs and symptoms have been present for 1 day and indicates a pain score of 0/10. MEDICAL/SURGICAL HISTORY: Hypertension. Fusion, cervical. RADIATION DOSE: 66.34 CTDI (mGy) COMPARISON: No prior exams available for comparison. TECHNIQUE: CT of the head without contrast. Using automated exposure control and adjustment of the mA and/or kV according to patient size, radiation dose was kept as low as reasonably achievable to ob tain optimal diagnostic quality images. DICOM format image data is available electronically for revi ew and comparison. FINDINGS: Cerebrum: The ventricles are normal for age. No evidence of midline shift, mass lesion, hemorrhage or acute infarction. No extraaxial fluid collections are seen. Posterior Fossa: The cerebellum and brainstem are intact. The 4th ventricle is midline. The cerebe llopontine angle is unremarkable. Extracranial: The visualized portion of the orbits is intact. Skull: The calvaria is intact. No evidence of skull fracture. CONCLUSION: Negative CT Head non contrast. . Electronically signed by: Reymundo Joseph MD 04/10/2018 3:13 PM EDT
--- NOTE | 2018-04-10 15:17 | XR ---
EXAM DATE: 04/10/2018 3:08 PM EDT AGE/SEX: 52 years / Male INDICATIONS: . Chest pain. CLINICAL DATA: This is the patient's initial encounter. Patient reports that signs and symptoms have been present for 1 day and indicates a pain score of 2/10. MEDICAL/SURGICAL HISTORY: . Hypertension. Cholecystectomy None. [place] [facility] [place]. . FINDINGS: PA and lateral views of the chest demonstrate the lungs to be symmetrically aerated without evidence of mass, infiltrate or effusion. The cardiomediastinal contours are unremarkable. Osseous structures are intact. CONCLUSION: Negative examination. Electronically signed by: Reymundo Joseph MD 04/10/2018 3:16 PM EDT
[2018-04-10 15:34] LABS: Chol/HDL Ratio 3.77 Ratio; Free T4 (Free Thyroxine) 1.12 ng/dL (0.76-1.46); Thyroid Stimulating Hormone 1.86 uIU/mL (0.358-3.740)
[2018-04-10 16:01] LABS: Hemoglobin A1c 5.9 % (4.3-6.0)
[2018-04-10] MEDS: LORazepam 0.5 MG Tablet PO PRN (16:42)
--- NOTE | 2018-04-10 17:36 | MR ---
EXAM DATE: 04/10/2018 5:31 PM EDT AGE/SEX: 52 years / Male INDICATIONS: Seizures. Syncope. CLINICAL DATA: This is the patient's subsequent encounter. Patient reports that signs and symptoms h ave been present for 2 days and indicates a pain score of 0/10. MEDICAL/SURGICAL HISTORY: Hypertension. Renal calculi. Fusion, cervical. Cholecystectomy. To nsillectomy. Appendicitis. COMPARISON: [facility] [place] W/[place]AST, 04/10/2018. . TECHNIQUE: 3D [id number] MRA was performed. Source images, multiplanar STS MIP, and 3D volum e MIP reconstructions were reviewed. FINDINGS: There is excellent visualization of the major intracranial arteries out to the second-order branch ve ssels. There is no evidence for aneurysm, vessel truncation or stenosis, and no evidence for vascula r malformation. The patient does have an absent left posterior cerebral artery with a prominent left posterior communicating artery contributing all of the flow. The left vertebral artery is dominant. The left anterior true wall is also quite small but there is a prominent anterior communicating arter y CONCLUSION: 1. Absent left posterior cerebral artery. Prominent left posterior communicating artery controlling all of the flow. No evidence of aneurysm or stenosis. Electronically signed by: Arslan Francis MD 04/10/2018 5:35 PM EDT
--- NOTE | 2018-04-10 17:38 | MR ---
EXAM DATE: 04/10/2018 5:31 PM EDT AGE/SEX: 52 years / Male INDICATIONS: Seizures. Syncope. CLINICAL DATA: This is the patient's subsequent encounter. Patient reports that signs and symptoms h ave been present for 2 days and indicates a pain score of 0/10. MEDICAL/SURGICAL HISTORY: Hypertension. Renal calculi. Fusion, cervical. Cholecystectomy. To nsillectomy. Appendectomy. COMPARISON: [facility], MRA HEAD W/O CONTRAST, 04/10/2018. . TECHNIQUE: Multiplanar, multisequence examination of the brain was performed without contrast. FINDINGS: Cerebrum: The ventricles are normal for age. No evidence of midline shift, mass lesion, hemorrhage or acute infarction. No extraaxial fluid collections are seen. The pituitary gland and suprasellar cistern are normal in configuration. White Matter: No significant signal abnormalities are seen in the white matter. Posterior Fossa: The cerebellum and brainstem are intact. The 4th ventricle is midline. The cerebel lopontine angle is unremarkable. The cerebellar tonsils are normal in position. Diffusion Imaging: No focal areas of restricted diffusion are seen. No evidence of acute infarction . Extracranial: The visualized portions of the orbits and paranasal sinuses are unremarkable except fo r small mucous retention cysts in the right maxillary sinus. CONCLUSION: 1. Negative MR Brain non contrast. Electronically signed by: Arslan Francis MD 04/10/2018 5:37 PM EDT
--- NOTE | 2018-04-10 18:44 | ECG ---
Date Performed: 04/10/2018 Time Performed: 06:34:16 PTAGE: 52 years EKG: Sinus rhythm RIGHT BUNDLE BRANCH BLOCK ABNORMAL ECG PREVIOUS TRACING : 04/09/2018 15.55 Since the previous tracing, no significant change noted DOCTOR: Gabe Cardenas Interpretating Date/Time 04/10/2018 18:43:03
--- NOTE | 2018-04-10 19:04 | ECG ---
Date Performed: 04/09/2018 Time Performed: 15:55:58 PTAGE: 52 years EKG: Sinus rhythm RIGHT BUNDLE BRANCH BLOCK ABNORMAL ECG NO PREVIOUS TRACING DOCTOR: Gabe Cardenas Interpretating Date/Time 04/10/2018 19:02:42
--- NOTE | 2018-04-10 20:58 | MG ---
cc: Katelyn Pozo MD EEG NUMBER: [id number] REFERRING PHYSICIAN: CLINICAL HISTORY: A 52-year-old room F63 awake, drowsy light sleep with photic only, no imaging, admitted with chest pain and syncope, on heparin, lisinopril, aspirin and methadone. DESCRIPTION OF RECORD: The patient has a background rhythm of 9.5 Hz 20 microvolts, low-amplitude but symmetrical background. EKG looks sinus. Overall, symmetrical. Background as stated, some mild artifact. The patient is noted to be talking. Photic stimulation does elicit a driving response. No epileptiform features. IMPRESSION: Normal electroencephalogram without any epileptiform features. Clinical correlation. Katelyn Pozo MD DF/ct/do , 07:17 PM , 07:23 PM
[2018-04-10] MEDS ORDERED: QUEtiapine 25 MG Tablet PO SCH (21:00)
[2018-04-10 23:42] VITALS: O2SAT 99
[2018-04-11 03:41] VITALS: RESP 16
[2018-04-11] MEDS: clonazePAM 0.5 MG Tablet PO SCH (05:40)
[2018-04-11 07:51] LABS: Baso % (Auto) 0.2 % (0.0-2.0); Eos # (Auto) 0.1 th/mm3 (0.0-0.4); Hematocrit 37.7 % (39.0-51.0); Hemoglobin 12.5 gm/dL (13.0-17.0); Lymph # (Auto) 1.2 th/mm3 (1.0-4.8); Lymph % (Auto) 30.3 % (9.0-44.0); Mean Corpuscular HGB Conc 33.2 % (32.0-36.0); Mean Corpuscular Hemoglobin 28.3 pg (27.0-34.0); Mean Corpuscular Volume 85.1 fL (80.0-100.0); Mono # (Auto) 0.4 th/mm3 (0.0-0.9); Mono % (Auto) 9.8 % (0.0-8.0); Neut # (Auto) 2.2 th/mm3 (1.8-7.7); Neut % (Auto) 56.7 % (16.0-70.0); Platelet Count 88 th/mm3 (150-450); Red Blood Count 4.43 mil/mm3 (4.50-5.90); Red Cell Distribution Width 13.9 % (11.6-17.2); White Blood Count 3.9 th/mm3 (4.0-11.0)
[2018-04-11 08:02] VITALS: BP 140/84; PULSE 70; TEMP 98
[2018-04-11 08:07] LABS: Albumin 3.7 g/dL (3.4-5.0); Anion Gap 7 meq/L (5-15); Aspartate Aminotransferase 21 U/L (15-37); Blood Urea Nitrogen 11 mg/dL (7-18); Calcium 8.9 mg/dL (8.5-10.1); Carbon Dioxide 28.9 meq/L (21.0-32.0); Chloride 110 meq/L (98-107); Glomerular Filtration Rate 82 mL/min (>89); Glucose,Random 93 mg/dL (74-106); Potassium 3.5 meq/L (3.5-5.1); Sodium 146 meq/L (136-145)
[2018-04-11 08:09] LABS: Alanine Aminotransferase 27 U/L (12-78)
[2018-04-11 08:11] LABS: Alkaline Phosphatase 52 U/L (45-117); Total Protein 6.7 g/dL (6.4-8.2)
[2018-04-11] MEDS: Lisinopril 20 MG Tablet PO SCH (08:13)
[2018-04-11] MEDS: FLUoxetine 10 MG Capsule PO SCH (08:13)
[2018-04-11] MEDS: Heparin - SQ 10,000 UNITS/ML Vial SQ SCH (08:13)
[2018-04-11] MEDS: Senna/Docusate Sodium 8.6/50 MG Tablet PO SCH (08:13)
[2018-04-11] MEDS: amLODIPine 5 MG Tablet PO SCH (08:14)
[2018-04-11] MEDS: Methadone 10 MG Tablet PO SCH (08:14)
[2018-04-11] MEDS: LORazepam 0.5 MG Tablet PO PRN (08:15)
[2018-04-11 08:37] LABS: Ovalocytes 1+
== END 2018-04-11 12:26 ==
LOC: NEDA 15:52 → NEPC 15:52 → NEPFCDU 19:57
PROVIDERS: ADMIT Family Medicine; ATTEND Family Medicine

== ENCOUNTER 2018-04-11 11:48 | Inpatient (IN) ==
[2018-04-11] MEDS ORDERED: Bisacodyl 10 MG Supp RECTAL PRN (13:56)
[2018-04-11] MEDS ORDERED: Aluminum/Magnesium/Simethacone Susp 30 ML UDC PO PRN (13:56)
[2018-04-11] MEDS: Senna/Docusate Sodium 8.6/50 MG Tablet PO SCH (22:00)
[2018-04-12] MEDS: Senna/Docusate Sodium 8.6/50 MG Tablet PO SCH ×2 (09:40→21:00)
[2018-04-12] MEDS ORDERED: Non-Formulary Drug (Lisinopril-Hydrochlorothiazide [Lisinopril-Hydrochlorothiazide] 1 TAB) PO SCH (10:00)
[2018-04-12] MEDS ORDERED: LORazepam 1 MG Tablet PO PRN (10:01)
[2018-04-12] MEDS ORDERED: Haloperidol Inj 5 MG/ML Ampul IM PRN (10:01)
[2018-04-12] MEDS: amLODIPine 5 MG Tablet PO SCH (11:27)
[2018-04-12] MEDS: Methadone 10 MG Tablet PO SCH (12:18)
--- NOTE | 2018-04-12 13:56 | P.HPPSY ---
Provisional Diagnosis Admission Date: April 11, 2018 13:09 Competence Certification of Person's Competence To Provide Express and Informed Consent I have personally examined Boaz Romero, a person being served at [facility] on, April 12, 2018 1352. Express and informed consent means consent voluntarily given in writing, by a competent person, after sufficient explanation and disclosure of the subject matter involved to enable the person to make a knowing and willful decision without any element of force, fraud, deceit, duress, or other form of constraint or coercion. This person is 18 years of age or older, is not now known to be incompetent to consent to treatment with a guardian advocate, and does not have a health care surrogate or proxy currently making medical treatment decisions. I have found this person to be one of the following: [X] Competent to provide express and informed consent, as defined above, for voluntary admission to this facility and is competent to provide express and informed consent for treatment. He/she has the consistent capacity to make well reasoned, willful, and knowing decisions concerning his or her medical or mental health treatment. The person fully and consistently understands the purpose of the admission for examination/placement and is fully capable of personally exercising all rights assured under [place] [] Incompetent to provide express and informed consent to voluntary admission, and this is incompetent to provide express and informed consent to treatment. The person must be transferred to involuntary status and a petition for a guardian advocate filed with the Circuit Court. [] Refusing to provide express and informed consent to voluntary admission but is competent to provide express and informed consent for treatment. The person must be discharged or transferred to involuntary status. Form shall be completed within 24 hours of a person's arrival at the receiving facility and filed in the clinical record of each person: 1. Admitted on a voluntary basis 2. Permitted to provide express and informed consent to his/her own treatment 3. Allowed to transfer from involuntary to voluntary status 4. Prior to permitting a person to consent to his or her own treatment after having been previously found incompetent to consent to treatment. History of Present Illness Capacity: Has capacity Chief Complaint: see below History of Present Illness: Patient is a 52-year-old white male here as a transfer from the medical unit. He initially came in with chest pain subsequently due to behavioral concerns various statements that he is made was transferred to the psychiatric unit. At this time he is on a voluntary status. Patient has been irritable and threatening. He continues to threaten unknown provider that put him onto the psych unit. He is complaining of paranoia and auditory hallucinations. They are not command in nature. He claims appropriate a history of schizophrenia but is not a very low-dose of Seroquel and there is a possibility of malingering. He has been perseverant on his methadone which was confirmed by nursing today at 50 mg daily. Other previous medications include Seroquel 50 mg nightly and Prozac 10 mg daily - Inpatient Certification I certify that the inpatient services were ordered in accordance with Medicare regulations governing the order. This includes certification that hospital inpatient services are reasonable and necessary and in the case of services not specified as inpatient-only under 42 CFR 419.22(n), that they are appropriately provided as inpatient services in accordance to with the 2-midnight benchmark under 43 CFR 412.3(e) I certify that inpatient psychiatric hospital services are medically necessary. Evaluation and treatment and/or diagnostic testing are expected to improve the patient's condition. The patient needs on a daily basis, active treatment furnished directly by or requiring the supervision of inpatient psychiatric facility personnel. Estimated Total Length of Stay (Days): 7 Plans for Post Hospital Care: Not yet determined PMFSH - History History Provided By: Patient, Family Member, Medical Record - Medical History Medical History: Medical History (Last Reviewed 04/10/18 @ 14:25 by Feli Alva) Fusion of spine of cervical region HBP (high blood pressure) High cholesterol PTSD (post-traumatic stress disorder) Prostate disorder Schizophrenia Smoker - Surgical History Surgical History: Surgical History (Last Reviewed 04/10/18 @ 14:25 by Feli Alva) Hx of cholecystectomy - Tobacco History Second Hand Smoke Exposure: Yes Smoking Status: Refused to answer Tobacco Type: Cigarettes - Alcohol History How Often Do You Have a Drink Containing Alcohol: Unable to Obtain - Substance Use History Substance History: No History of Abuse Medications and Allergies Active Medications: Active Medications Al Hydrox/Mg Hydrox/Simethicone (Mag-Al Plus Susp Liq) 30 ml PO Q6H PRN PRN Reason: DYSPEPSIA Al Hydroxide/Mg Hydroxide (Milk Of Magnesia Liq) 30 ml PO Q12H PRN PRN Reason: Mild Constipation Amlodipine Besylate (Norvasc) 5 mg PO DAILY [facility] Last Admin: 04/12/18 11:27 Dose: 5 mg Bisacodyl (Dulcolax Supp) 10 mg RECTAL DAILY PRN PRN Reason: SEVERE CONSITIPATION Flumazenil (Romazecon Inj) 0.2 mg IV.PUSH Q1M PRN PRN Reason: OVERSEDATION Fluoxetine HCl (Prozac) 10 mg PO DAILY [facility] Haloperidol Lactate (Haldol Inj) 1 mg IM Q15M PRN PRN Reason: for severe agitation Hydrochlorothiazide (Microzide) 12.5 mg PO DAILY [facility] Lactulose (Lactulose Liq) 30 ml PO DAILY PRN PRN Reason: SEVERE CONSITIPATION Lisinopril (Prinivil) 20 mg PO DAILY [facility] Lorazepam (Ativan) 1 mg PO Q4H PRN PRN Reason: for CIWA 8-10 Lorazepam (Ativan) 2 mg PO Q2H PRN PRN Reason: for CIWA 11-14 Lorazepam (Ativan Inj) 2 mg IM Q1H PRN PRN Reason: for CIWA 15-20 Last Admin: 04/12/18 10:18 Dose: 2 mg Lorazepam (Ativan Inj) 2 mg IM Q15M PRN PRN Reason: for CIWA > 20 Lorazepam (Ativan Inj) 1 mg IM Q4H PRN PRN Reason: for CIWA 8-10 Lorazepam (Ativan Inj) 2 mg IM Q2H PRN PRN Reason: for CIWA 11-14 Methadone HCl (Dolophine) 50 mg PO DAILY [facility] Last Admin: 04/12/18 12:18 Dose: 50 mg Methadone HCl (Dolophine) 50 mg PO DAILY [facility] Patch Removal (Remove Old Patch) 1 each T-DERMAL DAILY [facility] Pravastatin Sodium (Pravachol) 80 mg PO QPM [facility] Quetiapine Fumarate (Seroquel) 50 mg PO HS [facility] Senna/Docusate Sodium (Michelle-Colace) 1 tab PO BID [facility] Last Admin: 04/12/18 09:40 Dose: Not Given Sennosides (Senokot) 17.2 mg PO Q12H PRN PRN Reason: Moderate Constipation Tamsulosin HCl (Flomax) 0.4 mg PO DAILY [facility] Last Admin: 04/12/18 11:27 Dose: 0.4 mg Allergies Allergy/AdvReac Type Severity Reaction Status Date / Time No Known Allergies Allergy Verified 04/09/18 15:57 Home Medications Medication Instructions Recorded Confirmed Type amlodipine [Norvasc] 5 mg PO DAILY 04/09/18 04/12/18 History lisinopril-hydrochlorothiazide 1 tab PO DAILY 04/09/18 04/12/18 History simvastatin [Zocor] 40 mg PO QPM 04/09/18 04/12/18 History tamsulosin [Flomax] 0.4 mg PO DAILY 04/09/18 04/12/18 History methadone 50 mg PO DAILY 04/10/18 04/12/18 History Exam Vital signs: Vital Signs 04/11/18 17:42 04/12/18 06:00 Temperature 97.7 F 98.9 F Pulse Rate 92 H 83 Respiratory Rate 17 17 Blood Pressure 114/74 131/61 Pulse Oximetry 98 100 Intake & Output 04/11/18 04/12/18 04/12/18 18:59 06:59 18:59 Weight 77.9 kg Other: Weight On Admission 77.9 kg Mental Status Examination Appearance: Appropriate Consciousness: Alert Orientation: x4 Motor Activity: Normal gait Speech: Unremarkable Language: Adequate Fund of Knowledge: Adequate Attention and Concentration: Adequate Memory: Remote (intact) Mood: Angry, Oppositional Affect: Other (Angry) Thought Process & Associations: Intact, Logical Thought Content: Obsessions Hallucination Type: Auditory Delusion Type: Paranoid Suicidal Ideation: No Suicidal Plan: No Suicidal Intention: No Homicidal Ideation: No Homicidal Plan: No Homicidal Intention: No Insight: Poor Judgment: Poor Assessment and Plan - Plan Plan: Estimated LOS: [3] days Patient will continue on the unit at this time given his threats towards staff and auditory hallucinations. We will restart his home medications including the methadone. Justification for Continued Inpatient Stay: Continue current treatment plan Request Healthcare Surrogate/Guardian Advocate?: No
[2018-04-12] MEDS ORDERED: Methadone 10 MG Tablet PO SCH (14:00)
[2018-04-12] MEDS: FLUoxetine 10 MG Capsule PO SCH (18:12)
[2018-04-12] MEDS: QUEtiapine 100 MG Tablet PO SCH (21:00)
[2018-04-13] MEDS: Lisinopril 20 MG Tablet PO SCH (08:51)
[2018-04-13] MEDS: amLODIPine 5 MG Tablet PO SCH (08:51)
[2018-04-13] MEDS: Methadone 10 MG Tablet PO SCH (08:52)
[2018-04-13] MEDS: FLUoxetine 10 MG Capsule PO SCH (08:52)
[2018-04-13] MEDS: Senna/Docusate Sodium 8.6/50 MG Tablet PO SCH ×2 (09:00→20:37)
[2018-04-13 09:01] LABS: Anion Gap 8 meq/L (5-15); Blood Urea Nitrogen 13 mg/dL (7-18); Calcium 8.3 mg/dL (8.5-10.1); Carbon Dioxide 26.5 meq/L (21.0-32.0); Chloride 111 meq/L (98-107); Glomerular Filtration Rate Greater Than 89 mL/min (>89); Glucose,Random 78 mg/dL (74-106); Sodium 145 meq/L (136-145)
[2018-04-13 09:03] LABS: Cholesterol 166 mg/dL (120-200); Triglycerides 201 mg/dL (42-150)
[2018-04-13 09:05] LABS: Chol/HDL Ratio 4.32 Ratio; HDL Cholesterol 38.4 mg/dL (40.0-60.0); LDL Cholesterol,Calculated 87 mg/dL (0-99)
--- NOTE | 2018-04-13 10:30 | P.PNPSY ---
Subjective Chief Complaint: see below Remarks: Reviewed electronic medical record and discussed with nursing staff. Patient is in the hallway and DICK Sweet and I spoke to him regarding his admission. He is very angry and upset. He states that he went to the Emergency Department because he was experiencing syncopal episode and his PCP found an arrhythmia on his EKG and sent him to the ED. He states he was medically cleared by the ED and asked to see a psychiatrist to obtain a prescription. He was very angry yesterday as he is on Methadone for a cervical injury and it took time for the staff to confirm the dose of Methadone with the clinic. He is currently taking his Methadone. He states that he wants prescriptions for his Klonopin and Gabapentin. He does not have an established mental health provider as he just moved here from [place]. He owns his own home and lives with significant other. He was given Ativan yesterday due to his behavior, today he is cooperative as he wants to be discharged. He was advised that his psychiatrist would meet with him tomorrow to discuss a discharge plan. Review of Systems All other systems reviewed negative except as stated in HPI Mental Status Examination Appearance: Appropriate Consciousness: Alert Orientation: x4 Motor Activity: Normal gait Speech: Unremarkable Language: Adequate Fund of Knowledge: Adequate Attention and Concentration: Adequate Memory: Remote (intact) Mood: Appropriate Affect: Appropriate Thought Process & Associations: Intact, Logical Thought Content: Obsessions Hallucination Type: None Delusion Type: None Suicidal Ideation: No Suicidal Plan: No Suicidal Intention: No Homicidal Ideation: No Homicidal Plan: No Homicidal Intention: No Insight: Adequate Judgment: Adequate Assessment and Plan - Assessment (1) Adjustment disorder Code(s): F43.20 - Adjustment disorder, unspecified Status: Acute - Plan Plan: Estimated LOS: [3] days Patient is stable. He will be moved from 2700 to 2600. He is cooperative and wants to be discharged. Plan of care will remain the same. Psychiatrist will see him on Saturday. Justification for Continued Inpatient Stay: Patient has been moved to 2600. Moving his to a less restrictive environment may result in his decompensation. Request Healthcare Surrogate/Guardian Advocate?: No
[2018-04-13 13:44] LABS: Hemoglobin A1c 5.8 % (4.3-6.0)
[2018-04-13] MEDS: QUEtiapine 100 MG Tablet PO SCH (20:37)
[2018-04-14] MEDS: amLODIPine 5 MG Tablet PO SCH (08:57)
[2018-04-14] MEDS: Senna/Docusate Sodium 8.6/50 MG Tablet PO SCH (08:59)
[2018-04-14] MEDS: Methadone 10 MG Tablet PO SCH (08:59)
[2018-04-14] MEDS: FLUoxetine 10 MG Capsule PO SCH (08:59)
[2018-04-14] MEDS: Lisinopril 20 MG Tablet PO SCH (09:38)
--- NOTE | 2018-04-14 13:59 | P.DSPSY ---
Psychiatry Discharge Summary Inpatient Psychiatric care?: Yes Advance Directives: No Mental Health Advance Directive: No Health Care Proxy: No - Admission Admission Date: April 11, 2018 13:09 - Admission Diagnosis (1) Acute adjustment disorder with mixed disturbance of emotions and conduct Code(s): F43.25 - Adjustment disorder with mixed disturbance of emotions and conduct Brief History: Patient is a 52-year-old white male here as a transfer from the medical unit. He initially came in with chest pain subsequently due to behavioral concerns various statements that he is made was transferred to the psychiatric unit. At this time he is on a voluntary status. Patient has been irritable and threatening. He continues to threaten unknown provider that put him onto the psych unit. He is complaining of paranoia and auditory hallucinations. They are not command in nature. He claims appropriate a history of schizophrenia but is not a very low-dose of Seroquel and there is a possibility of malingering. He has been perseverant on his methadone which was confirmed by nursing today at 50 mg daily. Other previous medications include Seroquel 50 mg nightly and Prozac 10 mg daily Tobacco Use In Past 30 Days: Yes How Often Do You Have a Drink Containing Alcohol: Unable to Obtain Hospital Course: Patient's hospital course was uneventful after the first confusion over smoking. He has been compliant with his medications. Patient seen today with floor staff. He denies suicidality homicidality voice or visions. Says he is moved down here within the past 2 months from the [place] area with his girlfriend. And is attempting to find mental health and medical follow-up. He has been set up with [facility] for mental health and he is set up with a primary care physician. He states he has a supply of his medical medications that needs a supply of psychotropics to not prescribe the benzodiazepines or the methadone. Patient is accepting of this with no problem. He is to be discharged today - Discharge Discharge Date: 04/14/18 - Discharge Diagnosis (1) Acute adjustment disorder with mixed disturbance of emotions and conduct Code(s): F43.25 - Adjustment disorder with mixed disturbance of emotions and conduct Status: Acute Discharge Disposition: Home - Discharge Instructions Discharge Diet: Regular Diet Activities You Can Perform: Regular- No Restrictions - Discharge Time > 30 minutes Mental Status Examination Appearance: Appropriate Consciousness: Alert Orientation: x4 Motor Activity: Normal gait Speech: Unremarkable Language: Adequate Fund of Knowledge: Adequate Attention and Concentration: Adequate Memory: Remote (intact) Mood: Appropriate Affect: Appropriate Thought Process & Associations: Intact, Logical Thought Content: Obsessions Hallucination Type: None Delusion Type: None Suicidal Ideation: No Suicidal Plan: No Suicidal Intention: No Homicidal Ideation: No Homicidal Plan: No Homicidal Intention: No Insight: Adequate Judgment: Adequate Discharge/Advance Care Plan - Results Vital Signs: Last Vital Signs Temp 97.8 F 04/14/18 06:00 Pulse 67 04/14/18 06:00 Resp 18 04/14/18 06:00 BP 132/80 04/14/18 06:00 Pulse Ox 96 04/14/18 06:00 Lab Results: Laboratory Results Hemoglobin A1c 5.8 % (4.3-6.0) 04/13/18 07:12 Triglycerides 201 mg/dL (42-150) H 04/13/18 07:12 Cholesterol 166 mg/dL (120-200) 04/13/18 07:12 LDL Cholesterol, Calc 87 mg/dL (0-99) 04/13/18 07:12 HDL Cholesterol 38.4 mg/dL (40.0-60.0) L 04/13/18 07:12 Summary of Procedures: None done Pending Results: None - Medications Number of antipsychotic medications at discharge: 1 - Discharge Care Plan Goals to Promote Your Health: * To prevent worsening of your condition and complications * To maintain your health at the optimal level Directions to Meet Your Goals: Take your medications as prescribed Follow your dietary instruction Follow activity as directed Keep your appointments as scheduled Take your immunizations and boosters as scheduled If your symptoms worsen call your PCP, if no PCP go to Urgent Care Center or Emergency Room For 18/02 questions related to your inpatient stay or results of tests pending at discharge, please contact Dr. Reymundo Lewis MD at Smoking is Dangerous to Your Health. Avoid second hand smoking
--- NOTE | 2018-04-14 15:36 | P.TTN ---
- Patient Problems Problems: 1. Discharge planning 2. Medication compliance 3. Knowledge deficit 4. Lack of coping skills - Progress Toward Goals Provider Present: Dr. Rich Lewis Provider Input: Patient will be discharged home today Psychiatric Counselors Present: Vonnie Santa LCSW, Jeison Mosqueda Jr., [facility], Shirlene Em, [facility] Group Spec/RT/OT/WONG Present: Kaya Hennessy, [facility] Group Spec/RT/OT/WONG Input: Patient hasn't attended the group activities since his admission. Pt is flat, non-social and uncooperative. Clinical Coordinator: Jessica Alonso [facility] - Documentation Teaching Recipient: Patient
== END 2018-04-14 16:25 | disposition home or self-care (01) ==
LOC: H260 13:09 → H270 14:33 → H260 04-13 10:51
PROVIDERS: ADMIT Psychiatry & Neurology Psychiatry; ATTEND Psychiatry & Neurology Psychiatry
CPT/HCPCS: 80048; 80061; 83036; J2060